=== PATIENT | male | born 1960 | race Caucasian/White ===

== ENCOUNTER 2025-01-15 07:45 | Outpatient (CLI) | payer OTHER, SELFPAY ==
--- OUTSIDE RECORDS SUMMARY | 2025-01-15 07:50 | XMS_ITS | Patient Health Record ---
Author Organization [facility] Address [address] [place] [address] Care Team Providers Care Research Advisor Name Role Phone Sabra Turner Primary Care Provider [phone] Sowmya Swan Unavailable [phone] Amita Renteria Unavailable [phone] Charmaine Zhang Unavailable [phone] Allergies No Known Allergies Results Component Value Reference Range Notes Lipid Panel* Reviewed date:04/04/2024 10:40:26 AM Interpretation: Performing Lab:[employer], Phone - [phone], Director - Farhad Notes/Report: Cholesterol, Total 105 100-199 mg/dL Triglycerides 106 0-149 mg/dL HDL Cholesterol 45 >39 mg/dL VLDL Cholesterol Jerry 20 5-40 mg/dL LDL Chol Calc (NIH) 40 0-99 mg/dL Hemoglobin A1c* Reviewed date:04/04/2024 10:40:48 AM Interpretation: Performing Lab:[employer], [employer] [facility] [place], Phone - [phone], Director - PhDMaria Isabel Notes/Report: Hemoglobin A1c 7.0 4.8-5.6 % . Prediabetes: 5.7 - 6.4 Diabetes: >6.4 Glycemic control for adults with diabetes: <7.0 CBC With Differential/Platel et* Reviewed date:04/04/2024 10:41:08 AM Interpretation: Performing Lab:[employer], [employer] [facility], Phone - [phone], Director - [facility] Notes/Report: WBC 9.4 3.4-10.8 x10E3/uL RBC 4.76 4.14-5.80 x10E6/uL Hemoglobin 14.1 13.0-17.7 g/dL Hematocrit 42.5 37.5-51.0 % MCV 89 79-97 fL MCH 29.6 26.6-33.0 pg MCHC 33.2 31.5-35.7 g/dL RDW 12.9 11.6-15.4 % Platelets 230 150-450 x10E3/uL Neutrophils 73 Not Estab. % Lymphs 14 Not Estab. % Monocytes 8 Not Estab. % Eos 4 Not Estab. % Basos 1 Not Estab. % Neutrophils (Absolute) 6.9 1.4-7.0 x10E3/uL Lymphs (Absolute) 1.3 0.7-3.1 x10E3/uL Monocytes(Absolute) 0.7 0.1-0.9 x10E3/uL Eos (Absolute) 0.3 0.0-0.4 x10E3/uL Baso (Absolute) 0.1 0.0-0.2 x10E3/uL Immature Granulocytes 0 Not Estab. % Immature Grans (Abs) 0.0 0.0-0.1 x10E3/uL CMP 14 Comprehensive Metabol ic Panel* Reviewed date:04/04/2024 10:41:23 AM Interpretation: Performing Lab:[facility] [place], [address] [facility], Phone - [phone], Director - [facility] Notes/Report: Glucose 148 70-99 mg/dL BUN 17 8-27 mg/dL Creatinine 0.94 0.76-1.27 mg/dL eGFR 92 >59 mL/min/1.73 BUN/Creatinine Ratio 18 10-24 Sodium 139 134-144 mmol/L Potassium 4.7 3.5-5.2 mmol/L Chloride 99 96-106 mmol/L Carbon Dioxide, Total 25 20-29 mmol/L Calcium 9.7 8.6-10.2 mg/dL Protein, Total 6.8 6.0-8.5 g/dL Albumin 4.0 3.9-4.9 g/dL Globulin, Total 2.8 1.5-4.5 g/dL Bilirubin, Total 0.6 0.0-1.2 mg/dL Alkaline Phosphatase 84 44-121 IU/L AST (SGOT) 25 0-40 IU/L ALT (SGPT) 34 0-44 IU/L Hemoglobin A1c CLIA Waived Reviewed date:08/13/2024 04:06:18 PM Interpretation: Performing Lab: Notes/Report: Hemoglobin A1c 7.1 % 4.0 - 6.4 % Reason For Referral Reason home sleep study, ol d CPAP, have not followed up with Sleep Medicine for years. Needs to be re-evaluated. CPAP not working correctly. Diagnosis 1 History of obstructi ve sleep apnea (Z86.69) Diagnosis 2 Coronary artery dise ase involving coronary bypass graft of rampart heart without angina pectoris (I25.810) Diagnosis 3 Hypertension, essent ial (I10) Diagnosis 4 Type 2 diabetes shannan itus with unspecified complications (E11.8) Referral Organization [facility] Referring Provider First Name Sabra Referring Provider Last Name Yue Referring Provider [facility]on Referred Provider [facility], . Referred Provider Special[facility] Sleep [facility] ne General Notes PHIL Holloway Monica R 08/16/2024 09:50:17 AM >Nurse completed referral and sent to [facility]. Clinical Notes [facility], [address] [facility] [address], [place] [address] , phone, fax Referral Priority Routine Reason lower lip, 5 mm eryt hematous, wart, skin tag, non painful, Diagnosis 1 Common wart (B07.8) Referral Organization [facility] Referring Provider First Name Sabra Referring Provider Last Name Yue Referring Provider [facility] Referred Provider [facility] - Dermatology Referred Provider Specialty Dermatology General Notes PHIL Holloway Monica R 08/16/2024 09:46:35 AM >Nurse completed and faxed referral to [facility]. Clinical Notes [facility], Dermatology, [address] [place] [address] , phone, fax Referral Priority Routine Reason Client needs psychot herapy either in-house or in community Diagnosis 1 Major depression (F3 2.9) Diagnosis 2 Anxiety (F41.9) Referral Organization [facility] Referring Provider First Name Charmaine Referring Provider Last Name Nicolassalima Referring Provider Speciality Psychiatry Referred Provider Specialty [facility] General Notes Dilia Morfin 10/22/2024 04:48:59 PM > Connect with OP therapy option Clinical Notes Ita Reno 10/24/2024 11:27:53 AM > HN contacted client. Client received central access's number to initiate therapy.Shadia Kristina L 10/26/2024 11:29:25 AM > HN called client, left a message to have client call back to discuss therapy process and assist with getting started., Ita Reno 10/30/2024 10:27:56 AM >HN provided the client with the number to [place] in order to initiate therapy. Client wrote the number down, repeated the number, and stated that they understood the process. HN will follow up in a couple days to make sure they successfully set up an appointment.Shadia Kristina L 11/06/2024 02:52:46 PM >HN contacted the client about initiating his therapy referral. The client could not find a pen, so the HN offered to text him the number so it is always on his phone. HN also provided her contact number if he needed assistance.Shelbie McKayla A 11/20/2024 02:10:55 PM > Loop closed, marking referral as addressed Referral Priority Routine Medications Medication SIG (Take, Route, Frequency, Duration) Notes Start Date End Date Status buPROPion HCl ER (XL) 300 MG 1 tablet in the morning Orally Once a day for 30 days Active Ezetimibe 10 mg TAKE 1 TABLET BY MOUTH DAILY for 30 Active Aspirin 81 81 MG 1 tablet Orally Once a day for 30 days Active Venlafaxine HCl ER 150 MG 1 capsule with food Orally Once a day for 30 days please mail to client Active Cholecalciferol 50 MCG (1999 UT) 1 capsule Orally Once a day for 30 days Active Ferrous Sulfate 325 (65 Fe) MG 1 tablet Orally twice daily for 30 days Active Venlafaxine HCl ER 150 MG 1 capsule with food Orally Once a day for 7 days Active Losartan Potassium 100 MG 1 tablet Orally Once a day for 30 days Active guaiFENesin 200 MG 1 tablet as needed Orally every 4 hrs As needed cough and congestion 08/14/2024 Active Rosuvastatin Calcium 20 mg TAKE 1 TABLET BY MOUTH DAILY for 30 Active metFORMIN HCl 1000 mg TAKE 1 TABLET BY MOUTH TWICE A DAY WITH MEALS for 30 Active Eliquis 5 MG 1 tablet Orally Twice a day for 30 days *PA approval expires 08/17/25. Active Metoprolol Succinate 25 MG take one half tablet (12.5mg) Orally twice daily for 30 days Active Gabapentin 300 mg TAKE 1 CAPSULE BY MOUTH TWICE A DAY for 30 Active Social History Tobacco Use: Social History Observation Description Date Details (start date - stop date) Never Smoker NA - NA Sex Assigned At : Social History Observation Description Sex Assigned At Male PRAPARE Question Answer Notes Date Completed/Updated: 09/03/2024 What is your current housing situation? I have h ousing Are you worried about losing your housing? No What is the highest level of school that you have finished? 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 Check all that apply I do not have problems meeting my needs Has lack of transportation k ept you from medical appointments, meetings, work or from getting things needed for daily living? Yes, it has kept me from non-medical meetings, appointments, work, or getting things needed for daily living How often do you see or talk to people that you care about and feel close to? (For example: talking to friends on the phone, visiting friends or family, going to christianity or club meetings) 3 to 5 times a week How stressed are you? Stress is when someone feels tense, nervous, anxious, or can\t sleep at night because their mind is troubled Somewhat In the past year have you sp ent more than 2 nights in a row in a care home, alf, correction center, or juvenile correctional facility? No Are you a refugee? No What country are you from? [place] Do you feel physically and e motionally safe where you currently live? Yes In the past year, have you b een afraid of your partner or ex-partner? Yes PRAPARE Score: 5 Enabling Services Provided? 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) Type 2 diabetes mellitus with unspecified complications (E11.8) Active confirmed Problem Vitamin D deficiency (85752488) Vitamin D deficiency, unspecified (E55.9) Active confirmed Problem Tobacco user (911109360) Nicotine dependence, unspecified, uncomplicated (F17.200) Active confirmed Problem Sleep apnea (04266794) Sleep apnea, unspecified (G47.30) Active confirmed Problem Hyperlipidemia (15403501) Hyperlipidemia (E78.5) Active confirmed Problem Major depression (118520478) Major depression (F32.9) Active confirmed Problem Anxiety (43107232) Anxiety (F41.9) Active confirmed Problem Neuropathy (786370086) Neuropathy (G62.9) Active confirmed Problem Glaucoma (14098891) Glaucoma (H40.9) Active confirmed Problem Essential hypertension (77693902) Hypertension, essential (I10) Active confirmed Problem Blood clotting disorder (98793469) Blood clotting disorder (D68.9) Active confirmed Problem Obesity (149605782) Obesity (BMI 30-39.9) (E66.9) Active confirmed Problem Concentration deficit (R41.840) Active confirmed Hx of ADHD dx per client. Working diagnosis . Problem Significant coronary bypass graft disease (603786686) Coronary artery disease involving coronary bypass graft of rampart heart without angina pectoris (I25.810) Active confirmed Problem Obesity (644889131) Obesity, unspecified classification, unspecified obesity type, unspecified whether serious comorbidity present (E66.9) Active confirmed Problem Pulmonary Embolism (26962508) Pulmonary embolism without acute cor pulmonale, unspecified chronicity, unspecified pulmonary embolism type (I26.99) Active confirmed Problem Activated protein C resistance (230769521) Factor V Leiden carrier (D68.51) Active confirmed Vital Signs Heart Rate 89 /min 08/16/2024 Temperature 98.4 degrees Fahrenheit 08/13/2024 Respiratory Rate 16 /min 08/16/2024 Blood pressure diastolic 82 mm Hg 08/16/2024 Oximetry 98 % 08/16/2024 Height 69 in 08/16/2024 Blood pressure systolic 126 mm Hg 08/16/2024 Weight 238.8 lbs 08/16/2024 BMI 35.26 kg/m2 08/16/2024 Encounters Encounter Location Date Provider Diagnosis [address] [address] 08/13/2024 Sabra Turner Type 2 diabetes mellitus with unspecified complications E11.[address] [address] 01/17/2024 Sowmya Swan Major depression F32.9 ; Anxiety F41.9 and Concentration deficit R41.[address] [address] 03/27/2024 Sabra Turner Hypertension, essential I10 ; Hyperlipidemia E78.5 ; Coronary artery disease involving coronary bypass graft of rampart heart without angina pectoris I25.810 ; Type 2 diabetes mellitus with unspecified complications E11.8 and Obesity, unspecified classification, unspecified obesity type, unspecified whether serious comorbidity present E66.[address] [address] 04/05/2024 Charmaine Zhang Nutritional counseling Z71.3 ; Major depression F32.9 ; Anxiety F41.9 and Concentration deficit R41.[address] [address] 08/13/2024 Sabra Turner Nicotine dependence, unspecified, uncomplicated F17.200 ; Type 2 diabetes mellitus with unspecified complications E11.8 ; Colon cancer screening Z12.11 ; History of obstructive sleep apnea Z86.69 ; Upper respiratory infection with cough and congestion J06.9 ; Common wart B07.8 ; Dietary counseling Z71.3 and Obesity (BMI 30-39.9) E66.[address] [place] [address] 08/16/2024 Charmaine Zhang Nutritional counseling Z71.3 ; Major depression F32.9 ; Anxiety F41.9 and Concentration deficit R41.[address] [address] 09/04/2024 Charmaine Zhang Major depression F32.9 ; Anxiety F41.9 and Concentration deficit R41.[address] [address] 10/22/2024 Charmaine Zhang Major depression F32.9 ; Anxiety F41.9 ; Concentration deficit R41.840 and Medication management Z79.[address] [address] 01/19/2024 [facility] [address] [address] 02/02/2024 [facility] [address] [address] 03/20/2024 Amita Renteria Major depression F32.[address] [address] 03/28/2024 Charmaine Zhang Major depression F32.[address] [address] 05/01/2024 Sabra Turner [facility] [address] [place] [address] 08/17/20[facility] [address] [place] [address] 08/20/[address] [address] 09/04/[address] [place] [address] 09/04/[address] [address] 03/19/2024 Sabra Turner [address] [address] 03/22/2024 Sabra Turner [address] [address] 04/23/2024 Charmaine Zhang [address] [address] 10/11/2024 Charmaine Zhang Assessments Encounter Date Diagnosis (ICD Code) Assessment Notes Treatment Notes Treatment Clinical Notes Section Notes 01/17/2024 Major depression (ICD-10 - F32.9) 03/20/2024 Major depression (ICD-10 - F32.9) 03/27/2024 Hypertension, essential (ICD-10 - I10) 03/28/2024 Major depression (ICD-10 - F32.9) 04/05/2024 Nutritional counseling (ICD-10 - Z71.3) Encouraged healthy diet, exercise as tolerated, proper water intake. 08/13/2024 Type 2 diabetes mellitus with unspecified complications (ICD-10 - E11.8) 08/13/2024 Nicotine dependence, unspecified, uncomplicated (ICD-10 - F17.200) 08/13/2024 Type 2 diabetes mellitus with unspecified complications (ICD-10 - E11.8) 08/16/2024 Nutritional counseling (ICD-10 - Z71.3) Encouraged healthy diet, exercise as tolerated, proper water intake. 09/04/2024 Major depression (ICD-10 - F32.9) 10/22/2024 Major depression (ICD-10 - F32.9) Light Box Therapy recommended for seasonal pattern MDD. The light box should provide an exposure of 10,000 lux of light and produce little to no UV light. Use within the first hour of waking up in the morning for about an hour. Follow law enforcement officer's instructions for distance from face. Keep eyes open but do not look directly into the light. 10/22/2024 Anxiety (ICD-10 - F41.9) Continue medication as prescribed. Psychotherapy recommended. Referral sent. 09/04/2024 Anxiety (ICD-10 - F41.9) Continue medication as prescribed, Psychotherapy recommended. Referral sent. 08/16/2024 Major depression (ICD-10 - F32.9) Cross taper from fluoxetine to to venlafaxine XR: Week 1 - fluoxetine 40 mg daily, venlafaxine XR 37.5 mg daily - started on 08/16/2024 Week 2 - fluoxetine 40 mg daily, venlafaxine XR 75 mg daily Weeks 3 and 4 - fluoxetine 20 mg daily, venlafaxine XR 150 mg daily Week 5 - Stop fluoxetine, evaluate and increase venlafaxine XR to 225 mg if needed 08/13/2024 Colon cancer screening (ICD-10 - Z12.11) 04/05/2024 Major depression (ICD-10 - F32.9) Reports that current symptoms are situational and decided to keep current medication regimen the same. Client will call if symptoms worsen or if they do not improve. 03/27/2024 Hyperlipidemia (ICD-10 - E78.5) 01/17/2024 Anxiety (ICD-10 - F41.9) 01/17/2024 Concentration deficit (ICD-10 - R41.840) Hx of ADHD dx per client. Working diagnosis. 03/27/2024 Coronary artery disease involving coronary bypass graft of rampart heart without angina pectoris (ICD-10 - I25.810) 04/05/2024 Anxiety (ICD-10 - F41.9) Continue fluoxetine and therapy 08/16/2024 Anxiety (ICD-10 - F41.9) Continue medication as prescribed, Psychotherapy recommended. Referral sent. 09/04/2024 Concentration deficit (ICD-10 - R41.840) Hx of ADHD dx per client. Working diagnosis. S/S of ADHD will be assessed more thoroughly once mood has been stabilized, and client will be evaluated further for medication therapy if needed.. Stimulants are not recommended due to age and cardiac history. 10/22/2024 Concentration deficit (ICD-10 - R41.840) Hx of ADHD dx per client. Working diagnosis. S/S of ADHD will be assessed more thoroughly once mood has been stabilized, and client will be evaluated further for medication therapy if needed.. Stimulants are not recommended due to age and cardiac history. 08/13/2024 History of obstructive sleep apnea (ICD-10 - Z86.69) 10/22/2024 Medication management (ICD-10 - Z79.899) May self-administer medications or be administered own oral medications per [facility] protocols. Provided informed consent with understanding of side effects, adverse effects, risks and benefits as well as alternative treatments as previously discussed and with the above recommended medications & other aspects of the treatment program. Agrees to return sooner if symptoms worsen or suicidal or homicidal ideations occur. 08/16/2024 Concentration deficit (ICD-10 - R41.840) Hx of ADHD dx per client. Working diagnosis. S/S of ADHD will be assessed more thoroughly once mood has been stabilized, and client will be evaluated further for medication therapy if needed.. Stimulants are not recommended due to age and cardiac history. 08/13/2024 Upper respiratory infection with cough and congestion (ICD-10 - J06.9) 04/05/2024 Concentration deficit (ICD-10 - R41.840) Hx of ADHD dx per client. Working diagnosis. continue therapy Discussed ADHD medications are not recommended at this time for client due to risks>benefits . Client currently not working and applying for SSI/D. 03/27/2024 Type 2 diabetes mellitus with unspecified complications (ICD-10 - E11.8) 03/27/2024 Obesity, unspecified classification, unspecified obesity type, unspecified whether serious comorbidity present (ICD-10 - E66.9) 08/13/2024 Common wart (ICD-10 - B07.8) 08/13/2024 Dietary counseling (ICD-10 - Z71.3) 08/13/2024 Obesity (BMI 30-39.9) (ICD-10 - E66.9) 01/17/2024 Other Client desires to continue services through outpatient department for continous support. Examination Proctor sent referral to help bridge client to these services. 03/27/2024 Other Complications of uncontrolled Diabetes reviewed including: renal, cardiovascular, neurological and opthalmological. Importance of lifestyle changes including low CHO diet and exercise as tolerated. Importance of BS monitoring discussed. Target BS 90-130 and to call if persistently <70 or >300. 04/05/2024 Other Continue psychotherapy as scheduled. May self-administer medications or be administered own oral medications per [facility] protocols. Provided informed consent with understanding of side effects, adverse effects, risks and benefits as well as alternative treatments as previously discussed and with the above recommended medications & other aspects of the treatment program. Agrees to return sooner if symptoms worsen or suicidal or homicidal ideations occur. 08/13/2024 Other Complications of uncontrolled Diabetes reviewed including: renal, cardiovascular, neurological and opthalmological. Importance of lifestyle changes including low CHO diet and exercise as tolerated. Importance of BS monitoring discussed. Target BS 90-130 and to call if persistently <70 or >300. 08/16/2024 Other May self-administer medications or be administered own oral medications per [facility] protocols. Provided informed consent with understanding of side effects, adverse effects, risks and benefits as well as alternative treatments as previously discussed and with the above recommended medications & other aspects of the treatment program. Agrees to return sooner if symptoms worsen or suicidal or homicidal ideations occur. 09/04/2024 Other May self-administer medications or be administered own oral medications per [facility] protocols. Provided informed consent with understanding of side effects, adverse effects, risks and benefits as well as alternative treatments as previously discussed and with the above recommended medications & other aspects of the treatment program. Agrees to return sooner if symptoms worsen or suicidal or homicidal ideations occur. Plan Of Treatment No Information Insurance Providers Payer Name Payer Address Payer Phone Subscriber Number Group Number Insured Name Patient Relationship to Insured Coverage Start Date Coverage End Date [facility] Claims Department [address] [place] [address] [id number] Trey Ramos Self - patient is the insured 4 MED[place]ID [facility] [place] [address] [id number] Trey Ramos Self - patient is the insured 3 4 MEDICAID [id number] [facility] [place] [address] [id number] Trey Ramos Self - patient is the insured 3 4 Medical (General) History Medical History History ICD Code Diabetes pulmonary embolism Heart Bypass hypercholesterolemia depression Clotting disorder Surgical History Surgery Date(Month/Year) amputation, toes Heart bypass 2018 Hospitalization History Reason Date(Month/Year) [place], [place] 11/11 023 [facility] 11/26/22 [facility]
--- OUTSIDE RECORDS SUMMARY | 2025-01-15 07:51 | XMS_ITS | Referral Summary ---
Author Organization [address] Address [facility] [place] [address] Care Team Providers Care Assistant Financial Accountant Name Role Phone Sabra Turner NP Primary Care Provider Allergies No known active allergies Medications Eliquis 5 mg tablet Take 1 tablet (5 mg total) by mouth 2 (two) times a day 01/06/2024 Active aspirin 81 mg enteric coated tablet Take 1 tablet (81 mg total) by mouth daily 12/02/2023 Active buPROPion XL (WELLBUTRIN XL) 300 mg 24 hr tablet Take 1 tablet (300 mg total) by mouth every morning 12/21/2023 Active ezetimibe (ZETIA) 10 mg tablet Take 1 tablet (10 mg total) by mouth daily 01/04/2024 Active FeroSuL 325 mg (65 mg iron) tablet Take 1 tablet (325 mg total) by mouth 2 (two) times a day 12/05/2023 Active losartan (COZAAR) 100 mg tablet Take 1 tablet (100 mg total) by mouth daily 12/02/2023 Active metFORMIN (GLUCOPHAGE) 1,000 mg tablet Take 1 tablet (1,000 mg total) by mouth 2 (two) times a day with meals 01/09/2024 Active rosuvastatin (CRESTOR) 20 mg tablet Take 1 tablet (20 mg total) by mouth daily 01/04/2024 Active cholecalciferol (VITAMIN D-3) 2000 unit tablet Take 1 tablet (2,000 Units total) by mouth daily Active vitamin D3-vitamin K2, MK4, 1,000-100 unit-mcg tablet 2,000 Units daily Active gabapentin (NEURONTIN) 300 mg capsule TAKE 1 CAPSULE BY MOUTH TWICE A DAY for 30 days Active ketorolac (ACULAR) 0.5 % ophthalmic solution 08/03/2024 Active venlafaxine XR (EFFEXOR-XR) 150 mg 24 hr capsule daily Active amLODIPine (NORVASC) 5 mg tablet Take 1 tablet (5 mg total) by mouth daily 90 tablet 3 09/14/2024 Active metoprolol tartrate (LOPRESSOR) 25 mg immediate release tablet Take 1 tablet (25 mg total) by mouth 2 (two) times a day 60 tablet 11 09/14/2024 Active Active Problems Problem Noted Date Diagnosed Date Pulmonary embolism, unspecif ied chronicity, unspecified pulmonary embolism type, unspecified whether acute cor pulmonale present 09/11/2024 Shortness of breath 07/18/2024 On continuous oral anticoagulation 07/18/2024 Hx of CABG 01/10/2024 Essential hypertension 01/10/2024 Mixed hyperlipidemia 01/10/2024 History of pulmonary embolus (PE) 01/10/2024 Screening for colon cancer 08/23/2023 Immunizations Immunization Administration Dates Next Due Influenza, Quadrivalent, Split, Intramuscular Influenza, Quadrivalent, Spl it, Preservative Free, Intramuscular 06/17/2017 Influenza, Trivalent, IM (MDV) 07/08/2016 Pneumococcal Conjugate PCV 13 01/19/2018 Pneumococcal Polysaccharide PPV23 12/25/2019 Social History Tobacco Use Types Packs/Day Years Used Date Smoking Tobacco: Former Cigarettes Passive Smoke Exposure: Past Smokeless Tobacco: Never Sex and Gender Information Value Date Recorded Sex Assigned at Not on file Legal Sex Male 4:32 PM 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 Gender Identity Male 05/02/2024 8:23 AM CDT Sexual Orientation Straight 05/02/2024 8: 23 AM CDT Last Filed Vital Signs Vital Sign Reading Time Taken Comments Blood Pressure 195/82 09/05/2024 3:04 PM TRANSPLANT 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 Pulse 78 09/05/2024 3:04 PM TRANSPLANT 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 Temperature 36.3 C (97.4 F) 09/04/2024 2:09 PM TRANSPLANT 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 Respiratory Rate 16 09/04/2024 2:09 PM TRANSPLANT 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 Oxygen Saturation 96% 09/04/2024 2:09 PM TRANSPLANT 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 Inhaled Oxygen Concentration - - Weight 112.9 kg (249 lb) 09/05/2024 3:04 PM TRANSPLANT 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 Height 175.3 cm (5' 9 ) 09/05/2024 3:04 PM TRANSPLANT 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 Body Mass Index 36.77 09/05/2024 3:04 PM TRANSPLANT 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 Plan of Treatment Scheduled Procedures Name Priority Associated Diagnoses Date/Ti me COLONOSCOPY Screening for colon cancer Insurance Care Teams Assistant Financial Accountant Relationship Specialty Start Date End Date Sabra Turner NP [address] [place] [address] PCP - General Family Medicine 08/19/23
--- OUTSIDE RECORDS SUMMARY | 2025-01-15 07:51 | XMS_ITS ---
Author Organization [facility] Address [address] [place] [address] Care Team Providers Care Digital Production Manager Name Role Phone Sabra Turner Primary Care Provider [phone] Charmaine Zhang Unavailable [phone] Allergies No Known Allergies Reason For Referral Reason Client needs psychot herapy either in-house or in community Diagnosis 1 Major depression (F3 2.9) Diagnosis 2 Anxiety (F41.9) Referral Organization [facility] Referring Provider First Name Charmaine Referring Provider Last Name Vicente Referring Provider Speciality Psychiatry Referred Provider Specialty Behavioral [facility] General Notes Dilia Morfin 10/22/2024 04:48:59 PM > Connect with OP therapy option Clinical Notes Ita Reno 10/24/2024 11:27:53 AM > HN contacted client. Client received central access's number to initiate therapy.Shadia Kristina L 10/26/2024 11:29:25 AM > FREDRICK called client, left a message to have client call back to discuss therapy process and assist with getting started.Shadia Kristina L 10/30/2024 10:27:56 AM >HN provided the client [...] provided her contact number if he needed assistance., Adriel MorfinKateofilo Wick 11/20/2024 02:10:55 PM > Loop closed, marking referral as addressed Referral Priority Routine REASON FOR VISIT 2 Month Psych F/U & Med Refill Medications Medication SIG (Take, Route, Frequency, Duration) Notes Start Date End Date Status Gabapentin 300 mg TAKE 1 CAPSULE BY MOUTH TWICE A DAY for 30 days Active Eliquis 5 MG 1 tablet Orally Twice a day for 30 days *PA approval expires 08/17/25. Active Metoprolol Succinate 25 MG take one half tablet (12.5mg) Orally twice daily for 30 days Active Venlafaxine HCl ER 150 MG 1 capsule with food Orally Once a day for 7 days Active guaiFENesin 200 MG 1 tablet as needed Orally every 4 hrs As needed cough and congestion 08/14/2024 Active Ezetimibe 10 mg TAKE 1 TABLET BY MOUTH DAILY for 30 Active Aspirin 81 81 MG 1 tablet Orally Once a day for 30 days Active Cholecalciferol 50 MCG (2000 UT) 1 capsule Orally Once a day for 30 days Active Rosuvastatin Calcium 20 mg TAKE 1 TABLET BY MOUTH DAILY for 30 Active metFORMIN HCl 1000 mg TAKE 1 TABLET BY MOUTH TWICE A DAY WITH MEALS for 30 Active buPROPion HCl ER (XL) 300 MG 1 tablet in the morning Orally Once a day for 30 days Active Venlafaxine HCl ER 150 MG 1 capsule with food Orally Once a day for 30 days please mail to client Active Ferrous Sulfate 325 (65 Fe) MG 1 tablet Orally twice daily for 30 days Active Losartan Potassium 100 MG 1 tablet Orally Once a day for 30 days Active Social History Tobacco Use: Social History [...] school 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 Stress is when someone feels tense, nervous, anxious, or can\t sleep at night because their mind is troubled Somewhat In the past year have you sp ent more than 2 nights in a row in a intermediate, fpc, longterm center, or juvenile correctional facility? No Are [...] nonsmoker,Ex-pipe smoker,Never chewed tobacco Tobacco use: Nonsmoker Encounters Encounter Location Date Provider Diagnosis [address] [address] 10/22/2024 Charmaine Zhang Major depression F32 .9 ; Anxiety F41.9 ; Concentration deficit R41.840 and Medication management Z79.899 Assessments Encounter Date Diagnosis (ICD Code) Assessment Notes Treatment Notes Treatment Clinical Notes Section Notes 10/22/2024 Major depression (ICD-10 - F32.9) Light Box Therapy recommended for seasonal pattern MDD. The light box should provide an exposure of 10,000 lux of light and produce little to no UV light. Use within the first hour of waking up in the morning for about an hour. Follow review engineer's instructions for distance from face. Keep eyes open but do not look directly into the light. 10/22/2024 Anxiety (ICD-10 - F41.9) Continue medication as prescribed. Psychotherapy recommended. Referral sent. 10/22/2024 Concentration deficit (ICD-10 - R41.840) Hx of ADHD dx per client. Working diagnosis. S/S of ADHD will be assessed more thoroughly once mood has been stabilized, and client will be evaluated further for medication therapy if needed.. Stimulants are not recommended due to age and cardiac history. 10/22/2024 Medication management (ICD-10 - Z79.899) May self-administer medications or be administered own oral medications per [employer] protocols. Provided informed consent with understanding of side effects, adverse effects, risks and benefits as well as alternative treatments as previously discussed and with the above recommended medications & other aspects of the treatment program. Agrees to return sooner if symptoms worsen or suicidal or homicidal ideations occur. Plan Of Treatment Medication Medication Name Sig Start Date Stop Date Notes buPROPion HCl ER (XL) 300 MG 1 tablet in the morning Orally Once a day for 30 days Venlafaxine HCl ER 150 MG 1 capsule with food Orally Once a day for 30 days please mail to client Treatment Notes Assessment Notes Major depression Light Box Therapy re commended for seasonal pattern MDD. The light box should provide an exposure of 10,000 lux of light and produce little to no UV light. Use within the first hour of waking up in the morning for about an hour. Follow review engineer's instructions for distance from face. Keep eyes open but do not look directly into the light. Anxiety Continue medication as prescribed. Psychotherapy recommended. Referral sent. Concentration deficit S/S of ADHD will b e assessed more thoroughly once mood has been stabilized, and client will be evaluated further for medication therapy if needed.. Stimulants are not recommended due to age and cardiac history. Medication management May self-administe r medications or be administered own oral medications per [employer] protocols. Provided informed consent with understanding of side effects, adverse effects, risks and benefits as well as alternative treatments as previously discussed and with the above recommended medications & other aspects of the treatment program. Agrees to return sooner if symptoms worsen or suicidal or homicidal ideations occur. Referrals Referral Date Details 10/22/2024 10/22/2024, Client n eeds psychotherapy either in-house or in community Next Appt Details Follow Up: 3 Months, Reason: Psychiatric Follow-up & Medication Management Progress Notes * Trey MADERA EDOB:1960 (63 yo M)Acc No.[id number]:10/22/2024 Patient: Trey HUNG Provider: Delano Zhang DNP, SALES REPRESENTATIVE JEWELRY, PMHNP- :1960 A ge:63 Y S ex:Male Date:10/22/2024 Address:[address] [place], [place] [id number] Pcp:Sabra Turner Check In:10:53 AM DEMAND PLANNING ANALYST Subjective: * Chief Complaints: * 2 Month Psych F/U & Med Refill * HPI: I nterim History: Emergency room visit N o. Was hospitalized N o. D epression Screening: PHQ-9 L ittle interest or pleasure in doing things?Several days F eeling down, depressed, or hopeless S everal days T rouble falling or staying asleep, or sleeping too much M ore than half the days F eeling tired or having little energy S everal days P oor appetite or overeating S everal days F eeling bad about yourself or that you are a failure, or have let yourself or your family down S everal days T rouble concentrating on things, such as reading the newspaper or watching television N early every day M oving or speaking so slowly that other people could have noticed; or the opposite, being so fidgety or restless that you have been moving around a lot more than usual S everal days T houghts that you would be better off or of hurting yourself in some way N ot at all T otal Score 1 1 I nterpretation M oderate Depression Intervention D epression Screening Findings P ositive F ollow-Up for Depression N o Referral necessary, patient involved in behavioral health treatment . S creening: [place] Suicide Severity Rating Scale (LF) D o you want to initiate with S creener form 1 . Wish to be : Have you wished you were or wished you could go to sleep and not wake up? N o 2 . Suicidal Thoughts: Have you actually had any thoughts of killing yourself? N o 6 . Suicide Behaviour: Have you ever done anything,started to do anything, or prepared to end your life? N o I nterpretation: L ow Risk C SSRS Interpretation and Follow Up Plan: CSSRS Interpretation and Follow Up Plan C SSRS Screen documented using SF Y es R isk Disposition from SF L ow - No Follow Up Plan Required F ollow Up Plan N o Follow Up Plan required at this time. P sychiatric Assessment - Current Symptoms: 63-year-old male client presents for follow-up psychiatric and medication management appointment. Client is being followed for the management of MDD, anxiety, and Hx of ADHD. Client is currently unemployed seeking disability; receives financial assistance from his older brother. Client is amenable to appointment today. 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 He has recently been approved for disability, which he is excited about as it will open up more opportunities for better housing. He has been off his medication, venlafaxine, for a few days and reports feeling a little flat. Andrez perez rates depression at 6 or 7 out of 10, and attributes these symptoms primarily to the winter season. He denies anxiety. The patient also reports poor sleep quality, often waking up at 3:00 AM and having difficulty falling asleep. He has a history of using a CPAP machine for sleep apnea but has not been using it recently. Denies nightmares. Reports he has been overeating due to low mood. D enies suicidal or homicidal ideation. N o reports or observations of psychotic symptoms/behaviors, manic behaviors, obsessive/compulsive behaviors or trauma/PTSD. No reports of side effects from medications. Denies substance use. Andrez perez has a sleep study scheduled in two weeks. The patient also mentions a growth on his lower lip, suspected to be skin cancer, for which he has a surgical procedure scheduled. He has been experiencing some anxiety about this. The patient is currently not on any therapy but expresses interest in starting. * ROS: P sych ROS: Constitutional A ll systems negative unless indicated otherwise., No recent illness reported,Obesity. R espiratory D enies problems. C ardiovascular H TN,Hyperlipidemia. G I D enies problems. M usculoskeletal D enies problems. N eurological D enies problems/concerns. E ndocrine D M. H ematological/Lymphatic H x of Factor V clotting disorder. P sych D enies SI/HI/AH/VH,Reports depression, R eports sleep disturbances. * Medical History: * Surgical History: a mputation, toes Heart bypass 2018 * Hospitalization/Major Diagno stic Procedure: [facility] in [place], [place] 11/2022[facility] 11/26/22[facility] in [place] * Family History: F ather: . M other: . 2 brother(s) , 2 sister(s) - healthy. . Father: Depression Mother: MH dx per client, unknown diagnosis. * Social History: P rimary Social History: L iving Arrangement L iving Arrangement: D ependent Living L iving with: Marta narvaez I s this a supportive environment? Y es Alcohol Use A lcohol Use Frequency: M onthly or less Illicit Substance Usage I llicit Substance Usage: N o Employment Status E mployment Status: U nemployed S ocial Determinants: P STELLA Walker ate Completed/Updated: 2023 W hat is your current housing situation? I have housing A re you worried about losing your housing??No W hat is the highest level of school that you have finished? M ore than high school W hat is your current work situation? 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 Check all that apply I do not have problems meeting my needs H as lack of transportation kept you from medical appointments, meetings, work or from getting things needed for daily living? Y es, it has kept me from non-medical meetings, appointments, work, or getting things needed for daily living H ow often do you see or talk to people that you care about and feel close to? (For example: talking to friends on the phone, visiting friends or family, going to sikhism or club meetings) 3 to 5 times a week H ow stressed are you? Stress is when someone feels tense, nervous, anxious, or can\t sleep at night because their mind is troubled S omewhat I n the past year have you spent more than 2 nights in a row in a intermediate, fpc, longterm center, or juvenile correctional facility? N o A re you a refugee? N o W hat country are you from[place] D o you feel physically and emotionally safe where you currently live? Y es I n the past year, have you been afraid of your partner or ex-partner? Y es P RAPARE Score: 5 E nabling Services Provided? Y es P lease specify C ase Management Follow-up,Case Management Home Visit T obacco Use: T obacco Control (Standard) A dditional Findings: Tobacco non-user C urrent nonsmoker,Ex-pipe smoker,Never chewed tobacco T obacco use: N onsmoker M iscellaneous: M ethod of learning P referred method of learning: D iscussion,Demonstration * Medications: T akingLosartan Potassium 100 MG Tablet 1 tablet Orally Once a day Ferrous Sulfate 325 (65 Fe) MG Tablet 1 tablet Orally twice daily metFORMIN HCl 1000 mg Tablet TAKE 1 TABLET BY MOUTH TWICE A DAY WITH MEALS Rosuvastatin Calcium 20 mg Tablet TAKE 1 TABLET BY MOUTH DAILY Ezetimibe 10 mg Tablet TAKE 1 TABLET BY MOUTH DAILY buPROPion HCl ER (XL) 300 MG Tablet Extended Release 24 Hour 1 tablet in the morning Orally Once a day Cholecalciferol 50 MCG (1999 UT) Tablet 1 capsule Orally Once a day Aspirin 81 81 MG Tablet Delayed Release 1 tablet Orally Once a day Metoprolol Succinate 25 MG Capsule ER 24 Hour Sprinkle take one half tablet (12.5mg) Orally twice daily Eliquis 5 MG Tablet 1 tablet Orally Twice a day , Notes to Pharmacist: *BRITTNEY approval expires 08/17/25.Gabapentin 300 mg Capsule TAKE 1 CAPSULE BY MOUTH TWICE A DAY guaiFENesin 200 MG Tablet 1 tablet as needed Orally every 4 hrs As needed cough and congestionVenlafaxine HCl ER 150 MG Capsule Extended Release 24 Hour 1 capsule with food Orally Once a day Medication List reviewed and reconciled with the patientTaking Losartan Potassium 100 MG Tablet 1 tablet Orally Once a day Taking Ferrous Sulfate 325 (65 Fe) MG Tablet 1 tablet Orally twice daily Taking metFORMIN HCl 1000 mg Tablet TAKE 1 TABLET BY MOUTH TWICE A DAY WITH MEALS Taking Rosuvastatin Calcium 20 mg Tablet TAKE 1 TABLET BY MOUTH DAILY Taking Ezetimibe 10 mg Tablet TAKE 1 TABLET BY MOUTH DAILY Taking buPROPion HCl ER (XL) 300 MG Tablet Extended Release 24 Hour 1 tablet in the morning Orally Once a day Taking Cholecalciferol 50 MCG (1999 UT) Tablet 1 capsule Orally Once a day Taking Aspirin 81 81 MG Tablet Delayed Release 1 tablet Orally Once a day Taking Metoprolol Succinate 25 MG Capsule ER 24 Hour Sprinkle take one half tablet (12.5mg) Orally twice daily Taking Eliquis 5 MG Tablet 1 tablet Orally Twice a day , Notes to Pharmacist: *BRITTNEY approval expires 08/17/25.Taking Gabapentin 300 mg Capsule TAKE 1 CAPSULE BY MOUTH TWICE A DAY Taking guaiFENesin 200 MG Tablet 1 tablet as needed Orally every 4 hrs As needed cough and congestionTaking Venlafaxine HCl ER 150 MG Capsule Extended Release 24 Hour 1 capsule with food Orally Once a day Medication List reviewed and reconciled with the patient * Allergies: N .K.D.A.no[Allergies Verified] Objective: * Vitals: * Examination: P sychiatry: APPEARANCE: a ppropriately dressed/groomed, appears stated age. ATTENTION: g ood. ORIENTATION: p erson, place and time. ATTITUDE: c ooperative, pleasant. AFFECT: f ull range, congruent. MOOD: flat , , depressed, hopeful. SPEECH: c lear, normal/R/V/R. PSYCHOMOTOR ACTIVITY: w ithin normal range, uses cane. ABNORMAL BODY MOVEMENTS: n one. CURRENT HOMICIDALITY: d enies. CURRENT SUICIDALITY: d enies. THOUGHT PROCESS: l inear, goal-directed. THOUGHT CONTENT: u nremarkable. PERCEPTUAL DISORDERS: n o perceptual disorder noted. INSIGHT: g ood. JUDGEMENT: g ood. INTELLIGENCE (estimate): a verage. Assessment: * Assessment: 1. M ajor depression - F32.9 2 . A nxiety - F41.9 3 . C oncentration deficit - R41.840 N otes :Hx of ADHD dx per client. Working diagnosis. 4 . M edication management - Z79.899 Plan: * Treatment: 2. A nxiety Notes: Continue medication as prescribed. Psychotherapy recommended. Referral sent. ? Referral To:Behavioral Health Reason:Client needs psychotherapy either in-house or in community 3. C oncentration deficit Notes: S/S of ADHD will be assessed more thoroughly once mood has been stabilized, and client will be evaluated further for medication therapy if needed.. Stimulants are not recommended due to age and cardiac history. 4. M edication management Notes: May self-administer medications or be administered own oral medications per [facility] protocols. Provided informed consent with understanding of side effects, adverse effects, risks and benefits as well as alternative treatments as previously discussed and with the above recommended medications & other aspects of the treatment program. Agrees to return sooner if symptoms worsen or suicidal or homicidal ideations occur. * Procedure Codes: * Follow Up: 3 Months (Reason: Psychiatric Follow-up & Medication Management) * * ND PLANNING ANALYST Sign off status: Completed true * Provider: Delano Zhang, LENCHO, SALES REPRESENTATIVE JEWELRY, PMHNP- Date: 0 10/22/2024 Generated for Printing/[employer]/eTransmitting on: 0 01/15/2025 07:50 AM CDT History and Physical Notes * HPI (History of Present Illness) Category Sub-Category Detail Notes Category Not es Interim History Was hospitalized No Emergency room visit No Depression Screening PHQ-9 Little inte rest or pleasure in doing things: Several days Feeling down, depressed, or hopeless: Se veral days Trouble falling or staying a sleep, or sleeping too much: More than half the days Feeling tired or having little energy: S everal days Poor appetite or overeating: Several day s Feeling bad about yourself o r that you are a failure, or have let yourself or your family down: Several days Trouble concentrating on thi ngs, such as reading the newspaper or watching television: Nearly every day Moving or speaking so slowly that other people could have noticed; or the opposite, being so fidgety or restless that you have been moving around a lot more than usual: Several days Thoughts that you would be b kelvin off or of hurting yourself in some way: Not at all Total Score: 11 Interpretation: Moderate Depression Intervention Depression Screening Findings: P ositive Follow-Up for Depression: No Referral necessary, patient involved in behavioral health treatment . Psychiatric Assessment - Current Symptoms 63-year-old male client presents for follow-up psychiatric and medication management appointment. Client is being followed for the management of MDD, anxiety, and Hx of ADHD. Client is currently unemployed seeking disability; receives financial assistance from his older brother. Client is amenable to appointment today. 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 He has recently been approved for disability, which he is excited about as it will open up more opportunities for better housing. He has been off his medication, venlafaxine, for a few days and reports feeling a little flat. He rates depression at 6 or 7 out of 10, and attributes these symptoms primarily to the winter season. He denies anxiety. The patient also reports poor sleep quality, often waking up at 3:00 AM and having difficulty falling asleep. He has a history of using a CPAP machine for sleep apnea but has not been using it recently. Denies nightmares. Reports he has been overeating due to low mood. Denies suicidal or homicidal ideation. No reports or observations of psychotic symptoms/behaviors, manic behaviors, obsessive/compulsive behaviors or trauma/PTSD. No reports of side effects from medications. Denies substance use. He has a sleep study scheduled in two weeks. The patient also mentions a growth on his lower lip, suspected to be skin cancer, for which he has a surgical procedure scheduled. He has been experiencing some anxiety about this. The patient is currently not on any therapy but expresses interest in starting. Screening [place] Suicide Severity Rating Scale (LF) Do you want to initiate with: Screener form 1. Wish to be : Have you wished you were or wished you could go to sleep and not wake up?: No 2. Suicidal Thoughts: Have you actually had any thoughts of killing yourself?: No 6. Suicide Behavior Question: Have you ever done anything,started to do anything, or prepared to end your life?: No Interpretation:: Low Risk CSSRS Interpretation and Follow Up Plan CSSRS Interpretation and Follow Up Plan CSSRS Screen documented using SF: Yes Risk Disposition from SF: Low - No Follo w Up Plan Required Follow Up Plan: No Follow Up Plan requir ed at this time. Examination Category Sub-Category Detail Notes Category Not es Psychiatry APPEARANCE: appropriately dr hebert/amanda, appears stated age ATTITUDE: cooperative, pleasan t PSYCHOMOTOR ACTIVITY: within normal rang e, uses cane ABNORMAL BODY MOVEMENTS: none ATTENTION: good ORIENTATION: person, place and ti me AFFECT: full range, congruen t MOOD: flat , , depressed, hopeful SPEECH: clear, normal/R/V/R INSIGHT: good JUDGEMENT: good THOUGHT PROCESS: linear, goal-directe d THOUGHT CONTENT: unremarkable PERCEPTUAL DISORDERS: no perceptual diso rder noted CURRENT SUICIDALITY: denies CURRENT HOMICIDALITY: denies INTELLIGENCE (estimate): average Consultation Request Notes Referral Date Referring Provider Referred Provider Not es 10/22/2024 Charmaine Zhang , Client needs psychotherapy either in-house or in community
--- OUTSIDE RECORDS SUMMARY | 2025-01-15 07:51 | XMS_ITS | Clinical Summary ---
Author Organization [address] Address [facility] [place] [address] Care Team Providers Care Leather Softener Name Role Phone Sabra Turner NP Primary [...] on file Legal Sex Male 4:32 PM CRYSTAL SYRUP MAKER Gender Identity Male 05/02/2024 8:23 AM CDT Sexual Orientation Straight 05/02/2024 8: 23 AM CDT Obstetrics History Last Filed Vital Signs Vital Sign Reading Time Taken Comments Blood Pressure 195/82 09/05/2024 3:04 PM CRYSTAL SYRUP MAKER Pulse 78 09/05/2024 3:04 PM CRYSTAL SYRUP MAKER Temperature 36.3 C (97.4 F) 09/04/2024 2:09 PM CRYSTAL SYRUP MAKER Respiratory Rate 16 09/04/2024 2:09 PM CRYSTAL SYRUP MAKER Oxygen Saturation 96% 09/04/2024 2:09 PM CRYSTAL SYRUP MAKER Inhaled Oxygen Concentration - - Weight 112.9 kg (249 lb) 09/05/2024 3:04 PM CRYSTAL SYRUP MAKER Height 175.3 cm (5' 9 ) 09/05/2024 3:04 PM CRYSTAL SYRUP MAKER Body Mass Index 36.77 09/05/2024 3:04 PM CRYSTAL SYRUP MAKER Plan of Treatment Scheduled Procedures Name Priority Associated Diagnoses Date/Ti me COLONOSCOPY Screening for colon cancer Health Maintenance Due Date Last Done Comments Colon Cancer Screening-Colonoscopy 1961 Depression Screening 1961 Hepatitis C Screening 1961 Prostate Cancer Screening-PSA 1961 DTaP/Tdap/Td Vaccine (1 - Tdap) 1972 Hepatitis B Screening 1979 Regular Well Visit/Exam 18-64 1979 Zoster Vaccine (1 of 2) 2011 Covid-19 Vaccine (3 - 2023-2 5 season) 2024 12/02/2020, 11/11/2020 Influenza Vaccine (#1) 2024 0, 06/17/2017, 07/08/2016 Pneumococcal vaccine <65 Aged Out 020, 01/19/2018 No longer eligible based on patient's age to complete this topic Insurance [facility] [address] [place] [id number] [facility] Care Teams Leather Softener Relationship Specialty Start Date End Date Sabra Turner NP [address] [place], [place] [id number] PCP - General Family Medicine 08/19/23
--- OUTSIDE RECORDS SUMMARY | 2025-01-15 07:51 | XMS_ITS ---
Author Organization [facility] Address [address] [place] [address] Care Team Providers Care Blemish Remover Name Role Phone WisamarnoldmarkSabra Primary Care Provider [phone] Charmaine Zhang [phone] REASON FOR VISIT Appointment Social History Sex Assigned At : Social History Observation Description Sex Assigned At Male Encounters Encounter Location Date Provider Diagnosis [address] [place] [address] 10/11/2024 Charmaine Zhang Plan Of Treatment No Information Progress Notes * Trey MADERA EDOB:1960 (63 yo M)Acc No.[id number]:10/11/2024 Patient: Andrez JORDANTrey WELLS :1960 A ge:63 Y S ex:Male Address:[address] [place] [id number] * true * Date: Generated for Printi ng/Farameshg/eTransmitting on: 0 01/15/2025 07:50 AM CDT
--- OUTSIDE RECORDS SUMMARY | 2025-01-15 07:51 | XMS_ITS ---
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 Stress is when someone feels tense, nervous, anxious, or can\t sleep at night because their mind is troubled Somewhat In the past year have you sp ent more than 2 nights in a row in a skilled nursing, half-way, longterm center, or juvenile correctional facility? No [...] Visit Tobacco Control (Standard) Question Answer Notes Tobacco use: Nonsmoker Encounters Encounter Location Date Provider Diagnosis [address] [place] [address] 09/04/2024 Sabra Turner Plan Of Treatment No Information Progress Notes * Trey MADERA EDOB:1960 (63 yo M)Acc No.[id number]:09/04/2024 Patient: Andrez IZQUIERDOTrey Yanely :1960 A ge:63 Y S ex:Male Address:[address] [place] [id number] Subjective: * Chief Complaints: * Zachary DOUGLAS Assess * Medical History: * Surgical History: * Hospitalization/Major Diagno stic Procedure: * Social History: S ocial Determinants: Zachary Walker ate Completed/Updated: 2023, W hat is your current housing situation? I have housing, A re you worried about losing your housing? N o, W hat is the highest level of school that you have finished? 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 Check all that apply I do not have problems meeting my needs, H as lack of transportation kept you from medical appointments, meetings, work or from getting things needed for daily living? Y es, it has kept me from non-medical meetings, appointments, work, or getting things needed for daily living, How often do you see or talk to people that you care about and feel close to? (For example: talking to friends on the phone, visiting friends or family, going to taoism or club meetings) 3 to 5 times a week, H ow stressed are you? Stress is when someone feels tense, nervous, anxious, or can\t sleep at night because their mind is troubled S omewhat, I n the past year have you spent more than 2 nights in a row in a skilled nursing, half-way, longterm center, or juvenile correctional facility? N o, A re you a refugee? N o, W hat country are you from[place], Do you feel physically and emotionally safe where you currently live? Y es, I n the past year, have you been afraid of your partner or ex-partner? Y ema, P RAPARE Score: 5 , Enabling Services Provided? Y ema P mateo specify C ase Management Follow-up,Case Management Home Visit. T obacco Use: T obacco Control (Standard) T obacco use: N onsmoker. * Medications: Objective: * Vitals: * Physical Examination: Assessment: Plan: * Treatment: * Procedure Codes: * true * Date: Generated for [place] loving/Micah/Charlesitting on: 0 01/15/2025 07:50 AM CDT
--- NOTE | 2025-02-05 16:11 | SLEEP_ITS ---
This report was moved to the correct visit on 02/06/2025. The original report was signed by Dede Ramirez DO on 02/05/25 [id number]. Sleep Study Date of Study: 01/15/2025 Ordering Provider: JORGE Farris Interpreting Physician: Dede Ramirez DO Sleep Study Type: Split Polysomnogram Height: 1.75 m Weight: 111.13 kg Body Mass Index: 36.3 Neck Circumference (inches): 17.25 [place]: 5 Reason for Sleep Study Previously diagnosed sleep apnea in 2002. Has not been compliant with CPAP since this time. The patient would like to restart CPAP therapy. Sleep History The patient is a 64-year-old male who had a sleep study ordered by the pulmonary group for evaluation of sleep apnea. The patient occasionally awakens from sleep short of breath. The patient frequently awakens at night with heartburn, belching, or cough. He frequently snores, and it is loud enough that others complain. He frequently has trouble sleeping when he has a cold. He rarely wakes up gasping for air throughout the night. He frequently has breathing problems at night observed by himself or others. He rarely sweats excessively at night. He occasionally has heart palpitations or an irregular heartbeat during the night. He occasionally falls asleep during the day, but never while driving. He occasionally experiences loss of muscle tone when extremely emotional. He occasionally has trouble at school or work due to sleepiness. He rarely feels unable to move when waking up or falling asleep. He frequently experiences vivid dreamlike scenes upon awakening or falling asleep. He rarely feels afraid of going to sleep. He occasionally has nightmares. He frequently remembers his dreams. He constantly has thoughts racing through his mind. He frequently feels sad, depressed, and anxious. He occasionally has muscular tension. He occasionally notices parts of his body jerk. He occasionally kicks during the night. He occasionally has crawling and aching feelings in his legs and occasionally has leg pain during the night. He denies grinding his teeth during sleep and rarely awakens with morning jaw pain. He is frequently bothered by pain during the day and occasionally awakened by pain during the night. He frequently wakes up feeling stiff in the morning. He frequently wakes up with sore or achy muscles. He frequently wakes up with pain in the neck, spine, and other joints. He goes to bed between 11 p.m. and midnight on weekdays. It takes him 20 minutes to fall asleep. He wakes up twice throughout the night to urinate and it can take several hours to fall back asleep. He wakes up at 8 a.m. on weekdays and at 10 a.m. on weekends. He typically gets 5 to 6 hours of sleep per night. He will stay in bed for 2 hours after waking up in the morning. He currently lives alone. He denies consuming any caffeinated beverages within 2 hours of bedtime. He denies engaging in physical exercise before bedtime. He will read before falling asleep. He denies watching television before falling asleep. He will take naps in the afternoon or the evening and they are refreshing. He consumes 3 caffeinated beverages per day. He denies tobacco, alcohol, and recreational drug use. COUNT INCLUDES THE [facility] Past Medical History Medical History Hypertension Hx pulmonary embolism Hx of deep venous thrombosis Depression with anxiety Obstructive sleep apnea Diskitis 2022Type 2 diabetes mellitus Surgical History Surgical History S/P IVC filter Hx of CABG 2018 Social History Social History Smoking status: Unknown if ever smoked Medications Home Medications ?Medication ?Instructions ?Recorded ?Confirmed ?Type apixaban 5 mg tablet (Eliquis) 5 mg PO BID 10/02/24 10/05/24 History aspirin 81 mg tablet,delayed 81 mg PO DAILY 10/02/24 10/05/24 History release bupropion HCl 300 mg 24 hr tablet, 300 mg PO QAM 10/02/24 10/05/24 History extended release cholecalciferol (vitamin D3) 50 50 mcg PO DAILY 10/02/24 10/05/24 History mcg (2,000 unit) capsule ezetimibe 10 mg tablet 10 mg PO DAILY 10/02/24 10/05/24 History ferrous sulfate 325 mg (65 mg 325 mg PO BID 10/02/24 10/05/24 History iron) tablet gabapentin 300 mg capsule 300 mg PO BID 10/02/24 10/05/24 History losartan 100 mg tablet 100 mg PO DAILY 10/02/24 10/05/24 History metformin 1,000 mg tablet,extended 1,000 mg PO BID 10/02/24 10/05/24 History release 24hr (osmotic) metoprolol succinate 25 mg 12.5 mg PO BID 10/02/24 10/05/24 History tablet,extended release 24 hr eszopiclone 2 mg tablet (Lunesta) 2 mg PO ONCE #1 tablet 10/05/24 10/05/24 Rx venlafaxine 25 mg tablet 25 mg PO DAILY 10/05/24 10/05/24 History Sleep Procedure A full night split study using the [employer] multi-channel system recorded the standard physiologic parameters including EEG, EOG, submentalis EMG, anterior tibialis EMG, EKG, body position, nasal and oral airflow using nasal pressure sensor and thermistor.? Respiratory parameters of chest and abdominal movements were recorded with Respiratory Inductance Plethysmography belts. Oxygen saturation was recorded by pulse oximetry. Video monitoring was also performed. Sleep stages, periodic limb movements, and EEG arousals were scored in 30 second epochs according to the criteria of the AASM Scoring Manual. The Apnea-Hypopnea Index was calculated using CMS guidelines for definition of hypopnea with 4% O2 desaturations while scoring respiratory events. Sleep Architecture During the diagnostic portion of the study, the total recording time was 190.3 minutes. The total sleep time was 142.0 minutes. Sleep latency was 2.3 minutes.? REM latency was 161.5 minutes. Sleep Efficiency was 74.6%. The patient had 27 awakenings for an awakening index of 11.4. Wake after sleep onset time was 46.0 minutes. The patient spent 57.0 minutes, 40.1% of total sleep time in Stage N1. The patient spent 68.5 minutes, 48.2% in Stage N2. The patient spent 0.0 minutes, 0.0% in Stage N3. The patient spent 16.5 minutes, 11.6% in Stage REM sleep. At 01:22:38 AM the patient was placed on PAP treatment and was titrated at pressures ranging from 5 cm H20 up to 13 cm H20. During the treatment portion of the study, the total recording time was 286.5 minutes.? The total sleep time was 220.5 minutes. Sleep latency was 8.5 minutes. REM sleep was not achieved during this portion of the study. Sleep Efficiency was 77.0%. Wake after Sleep Onset time was 58.0 minutes. The patient spent 55.0 minutes, 24.9% of total sleep time in Stage N1. The patient spent 165.5 minutes, 75.1% in Stage N2. The patient spent 0.0 minutes, 0.0% in Stage N3. The patient spent 0.0 minutes, 0.0% in Stage REM. Respiratory Analysis During the diagnostic portion of the study, the patient had 89 hypopneas, 14 obstructive apneas, 4 mixed apneas, and 10 central apneas for an overall Apnea Hypopnea Index of 46.9 events per hour. The REM Apnea Hypopnea Index was 29.1. The NREM Apnea Hypopnea Index was 49.2. The patient had a Central Apnea Hypopnea Index of 4.2. There was no evidence of Tunde-Nelson Respirations. During the treatment portion of the study, the patient had 20 hypopneas, 29 obstructive apneas, 5 mixed apneas, and 13 central apneas for an overall Apnea Hypopnea Index of 18.2 events per hour. The REM Apnea Hypopnea Index was 0. The NREM Apnea Hypopnea Index was 18.2. The patient had a Central Apnea Hypopnea Index of 3.5. There was no evidence of Tunde-Nelson Respirations. The patient was started on CPAP 5 cm H2O and titrated to CPAP 13 cm H2O. The patient was able to fall asleep starting on CPAP 5 cm H2O. The patient was unable to achieve REM during this portion of the study. On CPAP 13 cm H2O, the patient spent 48 minutes in NREM with 1 hypopnea, resulting in an AHI of 1.3. The patient had a sleep efficiency of 80.7% on this pressure setting. Arousals During the diagnostic portion of the study, there were a total of 154 arousals for an arousal index of 65.1.? There were 34 respiratory arousals for an index of 14.4. There were 33 periodic limb movement arousals for an index of 13.9.? There were 9 isolated limb movement arousals for an index of 3.8. There were 78 spontaneous arousals for an index of 33.0. During the treatment portion of the study, there were a total of 101 arousals for an index of 27.5.? There were 26 respiratory arousals for an index of 7.1. There were 29 periodic limb movement arousals for an index of 7.9.? There were 5 isolated limb movement arousals for an index of 1.4. There were 43 spontaneous arousals for an index of 11.7. Periodic Limb Movements During the diagnostic portion of the study, the patient had 25 isolated limb movements with an index of 10.6. The patient had 144 periodic limb movements with an index of 60.8, which is elevated (normal < 15). The patient had a total of 169 limb movements with a total limb movement index of 71.4. During the treatment portion of the study, the patient had 26 isolated limb movements with an index of 7.1. The patient had 298 periodic limb movements with an index of 81.1, which is elevated (normal < 15). The patient had a total of 324 limb movements with a total limb movement index of 88.2. Oximetry Data During the diagnostic portion of the study, the patient had an average oxygen saturation of 93.9% in wake with a minimum oxygen saturation of 87% and a maximum oxygen saturation of 99%. The patient had an average oxygen saturation of 92.8% in sleep with a minimum oxygen saturation of 81.0% and a maximum oxygen saturation of 98.0%. The patient had 147 oxygen desaturations resulting in an Oxygen Desaturation Index of 62.1. The patient spent 3.0 minutes, 1.5% of total sleep time with an oxygen saturation less than 88%. During the treatment portion of the study, the patient had an average oxygen saturation of 95.1% in wake with a minimum oxygen saturation of 89.0% and a maximum oxygen saturation of 98.0%. The patient had an average oxygen saturation of 94.5% in sleep with a minimum oxygen saturation of 88.0% and a maximum oxygen saturation of 98.0%. The patient had 48 oxygen desaturations resulting in an Oxygen Desaturation Index of 13.1. The patient spent 0 minutes of total sleep time with an oxygen saturation less than 88%. Snoring Profile Snoring was present in the baseline portion of the study. The snoring resolved once the patient was started on CPAP therapy. Cardiac Profile The EKG lead showed normal sinus rhythm with PVCs. The patient had notched QRS complexes, suggesting a bundle branch block. The patient also had bifid P waves suggesting atrial enlargement. During the diagnostic portion of the study, the average pulse rate was 62.1 bpm.? The minimum pulse rate was 56.0 bpm. The maximum pulse rate was 73.0 bpm. During the treatment portion of the study, the average pulse rate was 59.6 bpm.? The minimum pulse rate was 56.0 bpm. The maximum pulse rate was 68.0 bpm. EEG Profile No signs of seizure activity seen. Assessment and Plan Assessment and Plan (1) Obstructive sleep apnea: Code(s): G47.33 - Obstructive sleep apnea (adult) (pediatric) Status: Acute Assessment and Plan: In the baseline portion of the study, the patient had an overall AHI of 46.9 with desaturation down to 81%. This is consistent with severe sleep apnea. The patient was started on CPAP 5 cm H2O and titrated to CPAP 13 cm H2O. The patient did not get into REM sleep during the titration portion of the study so there is a likelihood that 13 cm H2O may not be able to resolve the patient's sleep apnea in REM sleep. I recommend that the patient be prescribed AutoPAP 12-18 cm H2O, size medium Resmed Mirage Quattro full face mask, CPAP filters/tubing and heated humidity. This should be used with all episodes of sleep.? Compliance should be reviewed within 31-90 days of starting therapy for usage greater than 4 hours per night greater than 70% of the nights. The patient should be asked about symptoms such as?excessive daytime sleepiness, quality of sleep, decreased nocturia, increased?mental functioning such as memory, mood, and concentration. The patient had a significant number of limb movements during the study with the majority being periodic in nature. The patient's sleep history is somewhat suggestive of Restless Leg Syndrome. I recommend that the patient have a serum ferritin drawn for evaluation of iron deficiency anemia. Data The data obtained during this sleep study is adequate for interpretation. Certification This sleep study has been reviewed by a board certified sleep medicine physician. Please be advised this is a medical document. It is intended for uoha-xn-hyoe communication. It is written in medical language and may contain unfamiliar abbreviations or verbiage. Medical documents are intended to carry relevant information, facts as evident, and the clinical opinion of the practitioner at the time of the encounter. This report may have been done utilizing a voice recognition system. Attempts have been made to correct errors. However, there may be uncorrected grammatical, spelling, and recognition errors present. The file time of this note does not necessarily represent the time the patient was seen. Report Initialized date/time: Dede Ramirez DO 02/05/25 / 1611 Electronically signed by: Dede Ramirez DO 02/05/25 8250 [facility]
== END 2025-01-16 06:35 | disposition home or self-care (01) ==
LOC: ANHCSM 07:48
PROVIDERS: PCP Nurse Practitioner Family; Visit Provider Physician Assistant
DX: G47.33 Obstructive sleep apnea (adult) (pediatric) (principal); I10 Essential (primary) hypertension; F39 Unspecified mood [affective] disorder; I25.9 Chronic ischemic heart disease, unspecified
CPT/HCPCS: 95811

== ENCOUNTER 2025-07-08 13:10 | Outpatient (CLI) | payer MEDICARE, MEDICAID, SELFPAY ==
--- OUTSIDE RECORDS SUMMARY | 2025-05-09 09:30 | XMS_ITS ---
Author Organization [facility] Address [address] [place] [address] Care Team Providers Care Construction Ironworker Name Role Phone Sabra Turner Primary Care Provider [phone] Charmaine Zhang [phone] REASON FOR VISIT 4 week F/U Social History Sex Assigned At : Social History Observation Description Sex Assigned At Male Encounters Encounter Location Date Provider Diagnosis [address] [address] 05/09/2025 Charmaine Zhang Plan Of Treatment No Information Progress Notes * Trey MADERA EDOB:1960 (64 yo M)Acc No.[id number]:05/09/2025 UNLOCKED PROGRESS NOTE Patient: Trey HUNG Provider: Delano Zhang DNP, APRN, PMHNP- :1960 A ge:64 Y S ex:Male Date:05/09/2025 Address:[address] [place], [place] [id number] Pcp:Sabra Turner Subjective: * Chief Complaints: * 1 . 4 week F/U. * Medical History: Objective: * Vitals: Assessment: Plan: * Treatment: * * Electronic signature of Lyndsey Matos [id number] on 07/08/2025 at 01:34 PM CDT Sign off status: Pending * Provider: Delano Zhang DNP, APRN, PMHNP-BC Date: 0 05/09/2025 Generated for Printing/Faxing/eTransmitting on: 0 07/08/2025 01:34 PM CDT
--- OUTSIDE RECORDS SUMMARY | 2025-05-16 03:00 | XMS_ITS ---
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 Name Role Phone Sabra Turner Primary Care Provider [phone] Charmaine Zhang [phone] REASON FOR VISIT r/s from 05/09 Social History Sex Assigned At : Social History Observation Description Sex Assigned At Male Encounters Encounter Location Date Provider Diagnosis [address] [address] 05/16/2025 Charmaine Zhang Plan Of Treatment No Information Progress Notes * Trey MADERA EDOB:1960 (64 yo M)Acc No.[id number]:05/16/2025 UNLOCKED PROGRESS NOTE Patient: Andrez IZQUIERDO Trey Yanely Provider: Delano Zhang DNP, COOK HELPER FRUIT, PMHNP- :1960 A ge:64 Y S ex:Male Date:05/16/2025 Address:[address] [place], [place] [phone] Pcp:Sabra Turner Subjective: * Chief Complaints: * 1 . R/s from 05/09. * Medical History: Objective: * Vitals: Assessment: Plan: * Treatment: * * Electronic signature of Lynsdey Matos [id number] on 07/08/2025 at 01:35 PM CDT Sign off status: Pending * Provider: Delano Zhang DNP, COOK HELPER FRUIT, PMHNP-BC Date: 0 05/16/2025 Generated for Printing/Faxing/eTransmitting on: 0 07/08/2025 01:35 PM CDT
--- OUTSIDE RECORDS SUMMARY | 2025-07-08 13:35 | XMS_ITS | Clinical Summary ---
Author Organization [address] Address [facility] [place] [address] Care Team Providers Care Tester Sound Name Role Phone Sabra Turner NP Primary [...] on file Legal Sex Male 4:32 PM ENDS DOWN CHECKER Gender Identity Male 05/02/2024 8:23 AM CDT Sexual Orientation Straight 05/02/2024 8: 23 AM CDT Obstetrics History Last Filed Vital Signs Vital Sign Reading Time Taken Comments Blood Pressure 195/82 09/05/2024 3:04 PM ENDS DOWN CHECKER Pulse 78 09/05/2024 3:04 PM ENDS DOWN CHECKER Temperature 36.3 C (97.4 F) 09/04/2024 2:09 PM ENDS DOWN CHECKER Respiratory Rate 16 09/04/2024 2:09 PM ENDS DOWN CHECKER Oxygen Saturation 96% 09/04/2024 2:09 PM ENDS DOWN CHECKER Inhaled Oxygen Concentration - - Weight 112.9 kg (249 lb) 09/05/2024 3:04 PM ENDS DOWN CHECKER Height 175.3 cm (5' 9) 09/05/2024 3:04 PM ENDS DOWN CHECKER Body Mass Index 36.77 09/05/2024 3:04 PM ENDS DOWN CHECKER Plan of Treatment Scheduled Procedures Name Priority Associated Diagnoses Date/Ti me COLONOSCOPY Screening for colon cancer Health Maintenance Due Date Last Done Comments Colon Cancer Screening-Colonoscopy 1960 Depression Screening 1960 Hepatitis C Screening 1961 Prostate Cancer Screening-PSA 1961 DTaP/Tdap/Td Vaccine (1 - Tdap) 1972 Hepatitis B Screening 1979 Regular Well Visit/Exam 18-64 1979 Zoster Vaccine (1 of 2) 2011 Covid-19 Vaccine (3 - 2024-2 6 season) 2025 12/02/2020, 11/11/2020 Influenza Vaccine (#1) 2025 0, 06/17/2017, 07/08/2016 Pneumococcal vaccine <65 Aged Out 020, 01/19/2018 No longer eligible based on patient's age to complete this topic Insurance [facility] [place] [id number] [facility] Care Teams Tester Sound Relationship Specialty Start Date End Date Sabra Turner NP PCP - General Family Medicine 08/19/23
--- OUTSIDE RECORDS SUMMARY | 2025-07-08 13:35 | XMS_ITS | Patient Health Record ---
Author Organization [facility] Address [address] [place] [address] Care Team Providers Care Audio/Video Engineer Name Role Phone Sabra Turner Primary Care Provider [phone] Charmaine Zhang Unavailable [phone] Allergies Allergen (clinical drug ingredient) Drug/Non Drug Allergy documented on EMR Reaction Allergy Type Onset Date Status No Known Drug Allergy Unknown Drug Allergy Active Results Component Value Reference Range Notes Hemoglobin A1c CLIA Waived Reviewed date:08/13/2024 04:06:18 PM Interpretation: Performing Lab: Notes/Report: Hemoglobin A1c 7.1 % 4.0 - 6.4 % CBC With Differential/Platel et* (Not yet reviewed by provider) Interpretation: Performing Lab:[facility], [address] [facility], Phone - [phone], Director - Farhad Notes/Report: A duplicate report has been generated due to demographic update of the patient's Date of , Age, Gender, and/or Specimen Date. Please review patient results, reference intervals, and calculated results that may have been affected by this change. WBC 9.5 3.4-10.8 x10E3/uL RBC 4.85 4.14-5.80 x10E6/uL Hemoglobin 14.1 13.0-17.7 g/dL Hematocrit 45.2 37.5-51.0 % MCV 93 79-97 fL MCH 29.1 26.6-33.0 pg MCHC 31.2 31.5-35.7 g/dL RDW 13.0 11.6-15.4 % Platelets 247 150-450 x10E3/uL Neutrophils 69 Not Estab. % Lymphs 20 Not Estab. % Monocytes 7 Not Estab. % Eos 3 Not Estab. % Basos 1 Not Estab. % Neutrophils (Absolute) 6.5 1.4-7.0 x10E3/uL Lymphs (Absolute) 1.9 0.7-3.1 x10E3/uL Monocytes(Absolute) 0.6 0.1-0.9 x10E3/uL Eos (Absolute) 0.3 0.0-0.4 x10E3/uL Baso (Absolute) 0.1 0.0-0.2 x10E3/uL Immature Granulocytes 0 Not Estab. % Immature Grans (Abs) 0.0 0.0-0.1 x10E3/uL Ferritin, Serum* (Not yet re viewed by provider) Interpretation: Performing Lab:[facility] [place], [address] [facility], Phone - [phone], Director - [facility] Notes/Report: A duplicate report has been generated due to demographic update of the patient's Date of , Age, Gender, and/or Specimen Date. Please review patient results, reference intervals, and calculated results that may have been affected by this change. Ferritin 108 30-400 ng/mL Iron and TIBC* (Not yet revi ewed by provider) Interpretation: Performing Lab:[facility] [place], [address] [facility], Phone - [phone], Director - [facility] Notes/Report: A duplicate report has been generated due to demographic update of the patient's Date of , Age, Gender, and/or Specimen Date. Please review patient results, reference intervals, and calculated results that may have been affected by this change. Iron Bind.Cap.(TIBC) 330 250-450 ug/dL UIBC 266 111-343 ug/dL Iron 64 38-169 ug/dL Iron Saturation 19 15-55 % Reason For Referral Reason home sleep study, ol d CPAP, have not followed up with Sleep Medicine for years. Needs to be re-evaluated. CPAP not working correctly. Diagnosis 1 History of obstructi ve sleep apnea (Z86.69) Diagnosis 2 Coronary artery dise ase involving coronary bypass graft of [place]qugmi[place] heart without angina pectoris (I25.810) Diagnosis 3 Hypertension, essent ial (I10) Diagnosis 4 Type 2 diabetes shannan itus with unspecified complications (E11.8) Referral Organization [facility] Referring Provider First Name Sabra Referring Provider Last Name Yue Referring Provider [facility] icikristine Referred Provider [facility], . Referred Provider Specialty Sleep Medici ne General Notes PHIL Holloway Monica R 08/16/2024 09:50:17 AM >Nurse completed referral and sent to [facility]. Clinical Notes [facility], [address], [place] [address] , phone, fax Referral Priority Routine Reason lower lip, 5 mm eryt hematous, wart, skin tag, non painful, Diagnosis 1 Common wart (B07.8) Referral Organization [facility] Referring Provider First Name Sabra Referring Provider Last Name Yue Referring Provider [facility] brenton Referred Provider [facility] - Dermatology Referred Provider Specialty Dermatology General Notes PHIL Holloway Monica R 08/16/2024 09:46:35 AM >Nurse completed and faxed referral to [facility]. Clinical Notes [facility], Dermatology, [address] [place] [address] , phone, fax Referral Priority Routine Reason Client needs psychot herapy either in-house or in community Diagnosis 1 Major depression (F3 2.9) Diagnosis 2 Anxiety (F41.9) Referral Organization [facility] Referring Provider First Name Charmaine Referring Provider Last Name Vicente Referring Provider Speciality Psychiatry [facility] Notes Dilia Morfin 10/22/2024 04:48:59 PM [...] make sure they successfully set up an appointment. ShadiaIta ruiz Frieda 11/06/2024 02:52:46 PM >HN contacted the client about initiating his therapy referral. The client could not find a pen, so the HN offered to text him the number so it is always on his phone. HN also provided her contact number if he needed assistance., Cheri Morfin 11/20/2024 02:10:55 PM > Loop closed, marking referral as addressed Referral Priority Routine Medications Medication SIG (Take, Route, Frequency, Duration) Notes Start Date End Date Status Rosuvastatin Calcium 20 mg TAKE 1 TABLET BY MOUTH DAILY; Duration: 30 needs appointment for any further refills Active Venlafaxine HCl ER 75 MG 1 capsule with food (total 225 mg) Orally Once a day; Duration: 30 days Active Venlafaxine HCl ER 75 mg TAKE 1 CAPSULE BY MOUTH DAILY WITH FOOD; Duration: 30 Active Venlafaxine HCl ER 150 MG 1 capsule with food (total 225 mg) Orally Once a day; Duration: 30 days please mail to client Active buPROPion HCl ER (XL) 300 MG 1 tablet in the morning Orally Once a day; Duration: 30 days Active Aspirin 81 81 MG 1 tablet Orally Once a day; Duration: 30 days Active Cholecalciferol 50 MCG (2000 UT) 1 capsule Orally Once a day; Duration: 30 days Active Eliquis 5 MG 1 tablet Orally Twice a day; Duration: 30 days Active Gabapentin 300 mg TAKE 1 CAPSULE BY MOUTH TWICE A DAY; Duration: 30 Active guaiFENesin 200 MG 1 tablet as needed Orally every 4 hrs As needed cough and congestion 08/14/2024 Active Metoprolol Succinate 25 MG take one half tablet (12.5mg) Orally twice daily; Duration: 30 days Active metFORMIN HCl 1000 mg TAKE 1 TABLET BY MOUTH TWICE A DAY WITH MEALS; Duration: 30 Active Ezetimibe 10 mg TAKE 1 TABLET BY MOUTH DAILY; Duration: 30 Active Losartan Potassium 100 mg TAKE 1 TABLET BY MOUTH DAILY; Duration: 30 Active Social History Tobacco Use: Social History Observation Description Date Details (start date - stop date) Never Smoker NA - NA Sex Assigned At : Social History Observation Description Sex Assigned At Male PRAPARE Question Answer Notes Date Completed/Updated: 03/12/2025 What is your current housing situation? I have h ousing Are you worried about losing your housing? No What is the highest level of school that you have finished? 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 Stress is when someone feels tense, nervous, anxious, or can\t sleep at night because their mind is troubled Somewhat In the past year have you sp ent more than 2 nights in a row in a care home, care home, correction center, or juvenile correctional facility? No Are you a refugee? No What country are you from? [place] Do you feel physically and e motionally safe where you currently live? Yes In the past year, have you b een afraid of your partner or ex-partner? I have not had a partner in the past year PRAPARE Score: 6 Enabling Services Provided? 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) Type 2 diabetes mellitus with unspecified complications (E11.8) 023 Active confirmed Problem Vitamin D deficiency (78441571) Vitamin D deficiency, unspecified (E55.9) Active confirmed Problem Tobacco user (605923419) Nicotine dependence, unspecified, uncomplicated (F17.200) Active confirmed Problem Sleep apnea (97092484) Sleep apnea, unspecified (G47.30) Active confirmed Problem Hyperlipidemia (19072897) Hyperlipidemia (E78.5) 023 Active confirmed Problem Major depression (447444391) Major depression (F32.9) Active confirmed Problem Anxiety (16883104) Anxiety (F41.9) Active confirmed Problem Attention deficit hyperactivity disorder (196804679) ADHD (attention deficit hyperactivity disorder) (F90.9) Active confirmed Problem Iron deficiency anemia (40754638) Iron deficiency anemia (D50.9) Active confirmed Problem Neuropathy (860720935) Neuropathy (G62.9) Active confirmed Problem Overweight (071426808) Over weight (E66.3) Active confirmed Problem Glaucoma (86635766) Glaucoma (H40.9) Active confirmed Problem Essential hypertension (57703304) Hypertension, essential (I10) 023 Active confirmed Problem Blood clotting disorder (41593983) Blood clotting disorder (D68.9) Active confirmed Problem Obesity (221525409) Obesity (BMI 30-39.9) (E66.9) Active confirmed Problem Poor concentration (finding) (28989772) Concentration deficit (R41.840) Active confirmed Hx of ADHD dx per client. Working diagnosis . Problem Significant coronary bypass graft disease (269667402) Coronary artery disease involving coronary bypass graft of iqugmiut heart without angina pectoris (I25.810) 023 Active confirmed Problem Obesity (936204936) Obesity, unspecified classification, unspecified obesity type, unspecified whether serious comorbidity present (E66.9) Active confirmed Problem Pulmonary Embolism (45231527) Pulmonary embolism without acute cor pulmonale, unspecified chronicity, unspecified pulmonary embolism type (I26.99) Active confirmed Problem Activated protein C resistance (390137142) Factor V Leiden carrier (D68.51) Active confirmed Vital Signs Heart Rate 93 /min 02/28/2025 Temperature 98.4 degrees Fahrenheit 08/13/2024 Respiratory Rate 16 /min 02/28/2025 Blood pressure diastolic 74 mm Hg 02/28/2025 Oximetry 95 % 02/28/2025 Height 69 in 02/28/2025 Blood pressure systolic 118 mm Hg 02/28/2025 Weight 255.6 lbs 02/28/2025 BMI 37.74 kg/m2 02/28/2025 Encounters Encounter Location Date Provider Diagnosis [facility] [address] [place] [address] 08/13/2024 Sabra Turner Type 2 diabetes mellitus with unspecified complications E11.8 [facility] [address] [place] [address] 02/19/2025 Sabra Turner [facility] [address] [place] [address] 08/13/2024 Sabra Turner Nicotine dependence, unspecified, uncomplicated F17.200 ; Type 2 diabetes mellitus with unspecified complications E11.8 ; Colon cancer screening Z12.11 ; History of obstructive sleep apnea Z86.69 ; Upper respiratory infection with cough and congestion J06.9 ; Common wart B07.8 ; Dietary counseling Z71.3 and Obesity (BMI 30-39.9) E66.[address] [address] 08/16/2024 Charmaine Zhang Nutritional counseling Z71.3 ; Major depression F32.9 ; Anxiety F41.9 and Concentration deficit R41.[address] [address] 09/04/2024 Charmaine Zhang Major depression F32.9 ; Anxiety F41.9 and Concentration deficit R41.[address] [address] 10/22/2024 Charmaine Zhang Major depression F32.9 ; Anxiety F41.9 ; Concentration deficit R41.840 and Medication management Z79.[address] [address] 02/28/2025 Charmaine Zhang Major depression F32.9 ; Anxiety F41.9 ; Concentration deficit R41.840 ; Over weight E66.3 and Medication management Z79.[address] [place] [address] 04/01/2025 Charmaine Zhang Major depression F32.9 ; Anxiety F41.9 ; ADHD (attention deficit hyperactivity disorder) F90.9 ; Concentration deficit R41.840 ; Over weight E66.3 and Medication management Z79.[address] [address] 05/22/2025 Charmaine Zhang Major depression F32.9 ; Anxiety F41.9 ; ADHD (attention deficit hyperactivity disorder) F90.9 ; Concentration deficit R41.840 ; Over weight E66.3 and Medication management Z79.[address] [address] 08/17/2024 Sabra Turner [address] [address] 08/20/[address] [address] 09/04/2024 Sabra [facility] [address] [address] 09/04/[address] [address] 02/13/2025 Sabra Turner Iron deficiency anemia D50.[address] [address] 03/13/2025 Sabra [place] [address] [address] 04/15/2025 Charmaine Zhang ADHD (attention deficit hyperactivity disorder) F90.[address] [place] [address] 10/11/2024 Charmaine Zhang Assessments Encounter Date Diagnosis (ICD Code) Assessment Notes Treatment Notes Treatment Clinical Notes Section Notes 08/13/2024 Type 2 diabetes mellitus with unspecified [...] the morning for about an hour. Follow control area operator's instructions for distance from face. Keep eyes open but do not look directly into the light. 02/13/2025 Iron deficiency anemia (ICD-10 - D50.9) 02/28/2025 Major depression (ICD-10 - F32.9) Psychotherapy recommended. Client has information needed to make appointment. 04/01/2025 Major depression (ICD-10 - F32.9) Psychotherapy recommended. Client has information needed to make appointment. Suggest that he make small, daily goals to increase motivation and productivity. 05/22/2025 Major depression (ICD-10 - F32.9) Psychotherapy recommended. Client has information needed to make appointment. Suggest that he make small, daily goals to increase motivation and productivity. 04/15/2025 ADHD (attention deficit hyperactivity disorder) (ICD-10 - F90.9) 05/22/2025 Anxiety (ICD-10 - F41.9) Continue medication as prescribed. Psychotherapy recommended. Client has information needed to make appointment. 04/01/2025 Anxiety (ICD-10 - F41.9) Continue medication as prescribed. Psychotherapy recommended. Client has information needed to make appointment. 02/28/2025 Anxiety (ICD-10 - F41.9) Continue medication as prescribed. Psychotherapy recommended. Client has information needed to make appointment. 10/22/2024 Anxiety (ICD-10 - F41.9) Continue medication [...] 08/13/2024 Colon cancer screening (ICD-10 - Z12.11) 08/16/2024 Anxiety (ICD-10 - F41.9) Continue medication [...] of obstructive sleep apnea (ICD-10 - Z86.69) 04/01/2025 ADHD (attention deficit hyperactivity disorder) (ICD-10 - F90.9) 05/22/2025 ADHD (attention deficit hyperactivity disorder) (ICD-10 - F90.9) 02/28/2025 Concentration deficit (ICD-10 - R41.840) Hx of ADHD dx per client. Working diagnosis. Mobile apps and other coping tools discussed to deal with symptoms of ADHD. Stimulants are not recommended due to age and cardiac history. 08/13/2024 Upper respiratory infection with cough and congestion (ICD-10 - J06.9) 04/01/2025 Concentration deficit (ICD-10 - R41.840) Hx of ADHD dx per client. Working diagnosis. Mobile apps and other coping tools discussed to deal with symptoms of ADHD. Stimulants are not recommended due to age and cardiac history. 02/28/2025 Over weight (ICD-10 - E66.3) 10/22/2024 Medication management (ICD-10 - Z79.899) May self-administer medications or be administered own oral medications per [place] protocols. Provided informed consent with understanding of [...] recommended due to age and cardiac history. 05/22/2025 Concentration deficit (ICD-10 - R41.840) Hx of ADHD dx per client. Working diagnosis. Mobile apps and other coping tools discussed to deal with symptoms of ADHD. Stimulants are not recommended due to age and cardiac history. 08/13/2024 Common wart (ICD-10 - B07.8) 02/28/2025 Medication management (ICD-10 - Z79.899) May self-administer medications or be administered own oral medications per [place] protocols. Provided informed consent with understanding of side effects, adverse effects, risks and benefits as well as alternative treatments as previously discussed and with the above recommended medications & other aspects of the treatment program. Agrees to return sooner if symptoms worsen or suicidal or homicidal ideations occur. 04/01/2025 Over weight (ICD-10 - E66.3) 05/22/2025 Over weight (ICD-10 - E66.3) 04/01/2025 Medication management (ICD-10 - Z79.899) May self-administer medications or be administered own oral medications per [place] protocols. Provided informed consent with understanding of side effects, adverse effects, risks and benefits as well as alternative treatments as previously discussed and with the above recommended medications & other aspects of the treatment program. Agrees to return sooner if symptoms worsen or suicidal or homicidal ideations occur. 08/13/2024 Dietary counseling (ICD-10 - Z71.3) 05/22/2025 Medication management (ICD-10 - Z79.899) May self-administer medications or be administered own oral medications per [place] protocols. Provided informed consent with understanding of side effects, adverse effects, risks and benefits as well as alternative treatments as previously discussed and with the above recommended medications & other aspects of the treatment program. Agrees to return sooner if symptoms worsen or suicidal or homicidal ideations occur. 08/13/2024 Obesity (BMI 30-39.9) (ICD-10 - E66.9) 08/13/2024 Other Complications of uncontrolled Diabetes reviewed including: renal, cardiovascular, neurological and opthalmological. Importance of lifestyle changes including low CHO diet and exercise as tolerated. Importance of BS monitoring discussed. Target BS 90-130 and to call if persistently <70 or >300. 08/16/2024 Other May self-administer medications or be administered own oral medications per [place] protocols. Provided informed consent with understanding of side effects, adverse effects, risks and benefits as well as alternative treatments as previously discussed and with the above recommended medications & other aspects of the treatment program. Agrees to return sooner if symptoms worsen or suicidal or homicidal ideations occur. 09/04/2024 Other May self-administer medications or be administered own oral medications per [place] protocols. Provided informed consent with understanding of side effects, adverse effects, risks and benefits as well as alternative treatments as previously discussed and with the above recommended medications & other aspects of the treatment program. Agrees to return sooner if symptoms worsen or suicidal or homicidal ideations occur. Plan Of Treatment Future Test Test Name Order Date Iron and TIBC* 02/13/2025 Ferritin, Serum* 02/13/2025 CBC With Differential/Platelet* 02/14/20 25 Insurance Providers Payer Name Payer Address Payer Phone Subscriber Number Group Number Insured Name Patient Relationship to Insured Coverage Start Date Coverage End Date [facility] Att[facility] Claims Department [address] [place] [address] [id number] Trey Ramos Self - patient is the insured 4 5 MEDICARE PART A [address] [place] [address] [id number] Trey Ramos Self - patient is the insured 5 MEDICA[address] [place] [address] [id number] Trey Ramos Self - patient is the insured 5 [employer] [address] [place] [address] [id number] Trey Ramos Self - patient is the insured 3 4 [facility] Claims Department [address] [place] [address] [id number] Trey Ramos Self - patient is the insured 5 5 Medical (General) History Medical History History ICD Code Diabetes pulmonary embolism Heart Bypass hypercholesterolemia depression Clotting disorder Surgical History Surgery Date(Month/Year) amputation, 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
--- NOTE | 2025-07-08 16:03 | P.PCNPFT_ITS ---
PFT Procedure Performed PFT Procedure Performed Spirometry with Pre/Post Bronchodilator Plethysmography (Lung Vol) Diffusing Cap (DLCO) Flow Vol Loop PFT Interpretation This is a pulmonary function test with pre and post-bronchodilator spirometry, plethysmography and diffusing capacity. The test was performed and results interpreted in accordance with the 2019 and 2005 ATS/ERS Task Force guidelines respectively using the Global Lung Function Initiative-2012 reference equations. Patient demonstrated good effort and cooperation. Reproducibility criteria were met. The quality of the pre bronchodilator spirometry maneuver was Grade A and post bronchodilator spirometry maneuver was Grade A. Findings: Spirometry: The expiratory flow tracing demonstrates a double hump in 4 of 4 pre bronchodilator efforts and 1 of 3 post bronchodilator efforts. The contour the inspiratory flow tracing is normal. The pre bronchodilator FVC is 3.42 L, 79% predicted. The pre bronchodilator FEV1 is 3.14 L, 93% predicted. The pre bronchodilator FEV1: FVC ratio is 92%. The post bronchodilator FVC is 3.46 L, representing 1% increase. The post bronchodilator FEV1 is 3.25 L, representing a 4% increase. The post bronchodilator FEV1: FVC ratio is 94%. Plethysmography: The total lung capacity is 5.23 L, 77% predicted. The functional residual capacity is 1.87 L, 53% predicted. The residual volume is 1.57 L, 70% predicted. Diffusing capacity: The diffusing capacity unadjusted for hemoglobin and car boxyhemoglobin is 13.8, 51% predicted. The diffusing capacity adjusted for alveolar volume is 2.88, 69% predicted. Impression: There is a reproducible double hump pattern in the expiratory flow tracing. This has been described with a variable obstruction at the thoracic inlet as the narrowing moves from an intrathoracic to a relative extrathoracic location towards the end of expiration. The spirometry is normal without evidence of an obstructive abnormality. There is no significant improvement after inhaling a single dose of albuterol. The total lung capacity and residual volume are normal with a decreased functional residual capacity. This is an abnormal but nonspecific lung volume pattern. The diffusing capacity unadjusted for hemoglobin and carboxyhemoglobin is moderately decreased and remains mildly decreased when adjusted for alveolar volume. There are no prior studies for comparison
== END 2025-07-08 13:11 | disposition home or self-care (01) ==
LOC: ANHPFT 13:14
PROVIDERS: PCP Nurse Practitioner Family; Visit Provider Physician Assistant
DX: R06.02 Shortness of breath (principal); J47.9 Bronchiectasis, uncomplicated; R94.2 Abnormal results of pulmonary function studies
CPT/HCPCS: 94060; 94726; 94729

== ENCOUNTER 2025-07-30 13:32 | Outpatient (CLI) | payer MEDICARE, MEDICAID, SELFPAY ==
--- NOTE | ~2025-07-30 | CT_ITS ---
EXAMINATION: CT soft tissue neck chest wo DATE: 07/30/2025 13:56 INDICATION: Other specified diseases of upper respiratory tract. TECHNIQUE: Computed tomography (CT) of the neck and chest was performed without intravenous contrast. Automated exposure control and iterative reconstruction technique were employed. The dose-length product was 1075.13 mGy-cm. COMPARISON: None FINDINGS: CT NECK: There are no pathologically enlarged lymph nodes. There are calcifications in the lingual tonsils. There is mild mucosal thickening in the paranasal sinuses. There is a small left mastoid effusion. There is mild cervical spondylosis. CT CHEST: The lungs volumes are small. There is widespread septal thickening in the lungs associated with groundglass opacities and mild architectural distortion. No bronchiectasis or honeycombing. No pleural effusion. The heart size is normal. There are coronary artery calcifications. There are changes of coronary artery bypass grafting. No pericardial effusion. There are gallstones in the gallbladder, which is contracted. There is a 3 mm stone in left kidney. There are bridging endplate osteophytes at multiple levels in the spine, consistent with diffuse idiopathic skeletal hyperostosis (DISH). IMPRESSION: 1. Diffuse lung disease, consistent with chronic interstitial lung disease in a pattern of nonspecific interstitial pneumonia (NSIP). Reviewed, dictated and finalized at location E.
== END 2025-07-30 13:33 | disposition home or self-care (01) ==
PROVIDERS: PCP Nurse Practitioner Family; Visit Provider Physician Assistant
DX: J39.8 Other specified diseases of upper respiratory tract (principal); J84.10 Pulmonary fibrosis, unspecified
CPT/HCPCS: 70490; 71250